=== PATIENT | female | born 1935 | race Caucasian/White ===

== ENCOUNTER 2017-08-11 10:16 | Inpatient (IN) | payer MEDICARE, BC ==
[2017-08-11] VITALS (7 sets, daily range): BP systolic 121–179; BP diastolic 58–136; PULSE 74–87; RESP 18–20; TEMP 97.2–98.4; O2SAT 93–98
[~2017-08-11] VITALS: Ht 162.6 cm; Wt 69.9 kg
[~2017-08-11 10:16] MED LIST: AMPH1TAB66 PO; HYDR-3583 PO; IBAN150T3 PO; ZOLP10TA3 PO
[2017-08-11] MEDS ORDERED: cloNIDine HCL 0.1 MG TAB PO PRN (10:45)
[2017-08-11] MEDS ORDERED: ACETAMINOPHEN 325 MG TAB PO PRN ×2 (10:45→14:15)
[2017-08-11] MEDS ORDERED: ONDANSETRON HCL 4 MG/2 ML VIAL IV PUSH PRN (10:45)
[2017-08-11] MEDS ORDERED: SODIUM CHLORIDE 0.9% FLUSH 10 ML FLUSH IV FLUSH PRN ×2 (10:45→14:15)
[2017-08-11] MEDS ORDERED: ACETAMINOPHEN/HYDROcodone 325 MG/10 MG TAB PO PRN (10:45)
[2017-08-11 11:00] LABS: AUTOMATED NEUTROPHIL # 5.2 TH/MM3 (1.8-7.7); BASOPHIL # 0.1 TH/MM3 (0-0.2); BASOPHIL % 0.8 % (0.0-2.0); EOSINOPHIL # 0.1 TH/MM3 (0-0.4); EOSINOPHIL % 1.5 % (0.0-4.0); HEMATOCRIT 47.7 % (35.0-46.0); HEMO FLAGS DIFF FINAL; LYMPH % 31.3 % (9.0-44.0); LYMPHOCYTE # 2.8 TH/MM3 (1.0-4.8); MEAN CELL VOLUME 85.4 FL (80.0-100.0); MEAN CORPUSCULAR HEMOGLOBIN 28.1 PG (27.0-34.0); MEAN CORPUSCULAR HGB CONC 32.9 % (32.0-36.0); MONO % 7.2 % (0.0-8.0); NEUT % 59.2 % (16.0-70.0); PLATELET COUNT 256 TH/MM3 (150-450); RED BLOOD COUNT 5.59 MIL/MM3 (4.00-5.30); RED CELL DISTRIBUTION WIDTH 13.9 % (11.6-17.2); WHITE BLOOD COUNT 8.8 TH/MM3 (4.0-11.0)
[2017-08-11] MEDS ORDERED: SODIUM CHLOR 0.45% 1000 ML IV SCH (11:00)
[2017-08-11 11:10] LABS: APTT (PATIENT) 26.1 SEC (24.3-30.1); INTERNATIONAL NORMALIZED RATIO 0.9 RATIO; PROTHROMBIN TIME - PATIENT 10.4 SEC (9.8-11.6)
[2017-08-11] MEDS ORDERED: DOCU50CA5 PO (11:15)
[2017-08-11] MEDS ORDERED: MIDAZOLAM HCL 2 MG/2 ML VIAL ONE (12:21)
[2017-08-11] MEDS ORDERED: ceFAZolin 2 GM PREMIX 50 ML ONE (12:22)
--- NOTE | 2017-08-11 13:46 | PD.RAD ---
Post Procedure Progress Note Pre Procedure Diagnosis: (1) Normal pressure hydrocephalus Post Procedure Diagnosis: (1) Normal pressure hydrocephalus Procedure Date: Aug 11, 2017 Supervising Radiologist: Odilon Maravilla Proceduralist/Assist: Dale Multani, RT(R), Franchesca Willoughby RT(R) Anesthesia: Conscious Sedation Plan of Activity Patient to Unit: Nursing Unit Patient Condition: Good See PACS Report for procedural detail/treatment Spinal Procedure Lumbar Drain L2-L3 (tip at s1) Fluid Removal (CCs): 1 Fluid Description: Odilon Roberts MD Aug 11, 2017 13:46
[2017-08-11] MEDS ORDERED: CYCLOBENZAPRINE HCL 10 MG TAB PO PRN (14:15)
[2017-08-11] MEDS ORDERED: MENTHOL LOZENGE BUCCAL PRN (14:15)
[2017-08-11] MEDS ORDERED: MAGNESIUM HYDROXIDE SUSP 30 ML CUP PO PRN (14:15)
[2017-08-11] MEDS ORDERED: PROMETHAZINE INJ 25 MG/ML VIAL IM PRN (14:15)
[2017-08-11] MEDS ORDERED: ALUMINUM/MAGNESIUM/SIMETH 30 ML CUP PO PRN (14:15)
[2017-08-11] MEDS ORDERED: RESP: ALBUTEROL 2.5 MG/3 ML NEB (PRN) NEB (14:15)
[2017-08-11] MEDS: SODIUM CHLOR 0.9% 1000 ML INJ 1,000 ML IV SCH ×2 (14:50→21:30)
--- NOTE | 2017-08-11 15:23 | RADRPT ---
EXAM DATE/TIME: 08/11/2017 12:06 [facility] COMPARISON: No previous studies available for comparison. INDICATIONS : Patient presents with dizziness and difficulty walking and short term memory loss, in need of a lumba r drain to check for normal pressure hydrocephalus. MEDICAL HISTORY : Enlarged ventricles osteoarthritis osteoporosis SURGIAL HISTORY : Tonsillectomy Cataracts Hip surgery Left Rotator Cuff ENCOUNTER: Initial ACUITY: 3 weeks PAIN SCORE: 5/10 LOCATION: Bilateral feet LUMBAR PUNCTURE TIME: 12:58 hours FLUORO TIME: 5.6 minutes IMAGE SERIES: 2 SEDATION TIME: 30 minutes LEVEL: Tip of lumbar drain was placed at L5 ? cm of water MEDICATION(S): 1.) 4 mg midazolam (Versed) IV 2.) 200 mcg fentanyl (Sublimaze) IV DEVICE(S): 1.) 5 [place] lumbar drain catheter PROCEDURE : 1. Fluoroscopically guided lumbar drain placement. 2. Conscious sedation with continuous EKG and oximetry monitoring. The risks, benefits and alternatives to the procedure were explained and verbal and written consent w as obtained. The site was prepped in sterile fashion. Full sterile technique was used, including ca p, mask, sterile gloves and gown and a large sterile sheet. Hand hygiene and 2% chlorhexidine and/or betadine/alcohol prep was utilized per protocol for cutaneous antisepsis. The skin and subcutaneous tissues were infiltrated with local anesthetic solution. With fluoroscopic guidance the lumbar thecal sac was punctured with a 14 gauge Touhy needle and a lum bar drain was placed with its tip at the level as described above and the catheter was sutured in joanna ce. CSF was identified returning from the catheter at the termination of the procedure. Conscious sedation was performed with the prescribed dosages and duration as above in the presence of an independent trained radiology nurse to assist in the monitoring of the patient. EKG and oximetry remained stable throughout the procedure. The patient tolerated the procedure well and there were n o complications. The patient was sent to post anesthesia recovery in stable condition. CONCLUSION: Uncomplicated lumbar drain placement as above. Odilon Maravilla MD on August 11, 2017 at 15:06 Board Certified Radiologist. This report was verified electronically.
[2017-08-11] MEDS: ACETAMINOPHEN/HYDROcodone 325 MG/10 MG TAB PO PRN ×2 (16:44→20:37)
[2017-08-11] MEDS: DOCUSATE SODIUM 100 MG CAP PO SCH (20:36)
[2017-08-11] MEDS: SODIUM CHLORIDE 0.9% FLUSH 10 ML FLUSH IV FLUSH SCH (20:37)
[2017-08-11] MEDS ORDERED: ZOLPIDEM TARTRATE 5 MG TAB PO PRN (21:00)
[2017-08-11] MEDS ORDERED: SODIUM CHLORIDE 0.9% FLUSH 10 ML FLUSH IV FLUSH SCH (21:00)
[2017-08-12] VITALS (7 sets, daily range): BP systolic 136–170; BP diastolic 65–83; PULSE 72–100; RESP 18–20; TEMP 98.2–98.8; O2SAT 93–98
[2017-08-12] MEDS: ZOLPIDEM TARTRATE 10 MG TAB PO PRN (00:17)
[2017-08-12 08:32] LABS: BICARBONATE 25.8 MEQ/L (21.0-32.0)
[2017-08-12] MEDS: PANTOPRAZOLE SOD 40 MG DELAYED RELEASE TAB PO SCH (08:43)
[2017-08-12] MEDS: DOCUSATE SODIUM 100 MG CAP PO SCH ×3 (08:43→20:27)
[2017-08-12] MEDS: ACETAMINOPHEN/HYDROcodone 325 MG/10 MG TAB PO PRN ×3 (08:44→20:33)
[2017-08-12] MEDS: SODIUM CHLORIDE 0.9% FLUSH 10 ML FLUSH IV FLUSH SCH ×2 (09:00→20:33)
[2017-08-12] MEDS: DEXTROAMPHETAMINE/AMPHETAMINE 20 MG TAB PO SCH (12:04)
--- NOTE | 2017-08-12 13:34 | HHI.NSPN ---
(Cisco Perry) History Chief Complaint: unsteady gait, urinary incontinence, short-term memory deficits. (Cisco Perry) Interval History 08/12/17: Patient underwent lumbar spinal drain placement for evaluation of symptoms of normal pressure hydrocephalus including short-term memory deficits, unsteady gait, and urinary incontinence. Patient had lumbar spinal drain placed on 08/11/17 and at this point has not had any improvement in her gait per physical therapy and her friends observation. Patient complains of headache , no nausea or vomiting. No numbness or tingling in the lower extremities. She moves lower extremities with good strength. (Cisco Perry) Review of Systems General: Negative for: fever, chills, insomnia Respiratory: Negative for: shortness of breath, cough, sputum Cardiovascular: Negative for: chest pain Gastrointestinal: Negative for: nausea, vomitting, diarrhea, constipation ( Cisco Perry) Exam Results Vital Signs Date Time Temp Pulse Resp B/P (MAP) Pulse Ox O2 Delivery O2 Flow Rate FiO2 08/12/17 12:00 98.2 80 18 155/78 (103) 96 Intake and Output 08/12/17 08/12/17 08/12/17 07:59 15:59 23:59 Output Total 80 ml Balance -80 ml (Cisco Perry) Physical Examination GENERAL: Patient resting comfortably in her bed. HEAD: Normocephalic, atraumatic. EYES: Pupils equal. Sclera non icteric. RESPIRATORY: CTA Bilaterally HEART: NSR Normal S1 and S2 ABDOMEN: Soft Positive BS SKIN: No cyanosis or erythema MUSCLE: Patient moves all 4 extremities, 5/5 strength in the lower extremities. She has an unsteady gait which the physical therapist states is unchanged after her a lumbar spinal drain was placed. NEUROLOGIC: Patient is awake and alert. Speech is clear and appropriate. Follows commands well. Sensation intact in extremities. Cranial Nerves II-XII grossly intact. (Cisco Perry) Lab, Micro, Other Results Last Impressions Lumbar Puncture Fluoroscopy 08/11/17 1032 Signed Impressions: Service Date/Time: Friday, August 11, 2017 12:06 - CONCLUSION: Uncomplicated lumbar drain placement as above. Odilon Maravilla MD Laboratory Tests Test 08/12/17 05:45 Blood Urea Nitrogen 15 MG/DL Creatinine 0.53 MG/DL Random Glucose 95 MG/DL Calcium Level 8.1 MG/DL Sodium Level 140 MEQ/L Potassium Level 4.0 MEQ/L Chloride Level 109 MEQ/L Carbon Dioxide Level 25.8 MEQ/L Anion Gap 5 MEQ/L Estimat Glomerular Filtration Rate 111 ML/MIN (Cisco Perry) Medical Decision Making Impression and Plan A: 82-year-old female with a history of unsteady gait, urinary incontinence, and short-term memory deficits who underwent a temporary lumbar spinal drain on 08/11/17 for further evaluation of possible normal pressure hydrocephalus. P: Continue with lumbar spinal drain. We will likely remove the lumbar spinal drain tomorrow the patient will need to be on bedrest for 6 hours after drain removed. Anticipate discharge on 08/14/17 a.m. Discuss plan with RN, patient, and patient's friend who helps takes care of her. (Cisco Perry) Attending Statement The exam, history, and the medical decision-making described in the above note were completed with the assistance of the mid-level provider. I reviewed and agree with the findings presented. I attest that I had a [id number] encounter with the patient on the same day, and personally performed and documented my assessment and findings in the medical record. (Alejandro Vogel MD) Cisco Perry Aug 12, 2017 13:34 Alejandro Vogel MD Aug 12, 2017 16:00
[2017-08-12] MEDS: SODIUM CHLOR 0.9% 1000 ML INJ 1,000 ML IV SCH (17:30)
[2017-08-13] MEDS: ZOLPIDEM TARTRATE 10 MG TAB PO PRN ×2 (00:02→21:14)
[2017-08-13 00:30] VITALS: BP 139/66; PULSE 80; RESP 18; TEMP 98.3; O2SAT 95
[2017-08-13] MEDS: SODIUM CHLOR 0.9% 1000 ML INJ 1,000 ML IV SCH ×3 (00:57→23:30)
[2017-08-13] MEDS: ACETAMINOPHEN/HYDROcodone 325 MG/10 MG TAB PO PRN ×4 (00:57→21:15)
[2017-08-13 05:01] VITALS: BP 129/59; PULSE 88; RESP 18; TEMP 98.1; O2SAT 95
[2017-08-13 08:00] VITALS: BP 123/58; PULSE 69; RESP 20; TEMP 97.7; O2SAT 92
[2017-08-13] MEDS: DEXTROAMPHETAMINE/AMPHETAMINE 20 MG TAB PO SCH (09:01)
[2017-08-13] MEDS: PANTOPRAZOLE SOD 40 MG DELAYED RELEASE TAB PO SCH (09:01)
[2017-08-13] MEDS: SODIUM CHLORIDE 0.9% FLUSH 10 ML FLUSH IV FLUSH SCH ×2 (09:02→21:00)
[2017-08-13] MEDS: DOCUSATE SODIUM 100 MG CAP PO SCH ×2 (09:02→21:14)
--- NOTE | 2017-08-13 11:57 | HHI.NSPN ---
(Johanny Bonilla) Note Status Status: Progress Note (Johanny Bonilla) Interval History Interval History 08/12/17: Patient underwent lumbar spinal drain placement for evaluation of symptoms of normal pressure hydrocephalus including short-term memory deficits, unsteady gait, and urinary incontinence. Patient had lumbar spinal drain placed on 08/11/17 and at this point has not had any improvement in her gait per physical therapy and her friends observation. Patient complains of headache , no nausea or vomiting. No numbness or tingling in the lower extremities. She moves lower extremities with good strength. 08/13: sitting up edge of bed eating breakfast. denies headaches. does not want to go home today as she does not have any family, requests dc tomorrow (Johanny Bonilla) Labs, Micro, & Vital Signs Results Date Time Temp Pulse Resp B/P (MAP) Pulse Ox O2 Delivery O2 Flow Rate FiO2 08/13/17 08:00 97.7 69 20 123/58 (79) 92 08/13/17 05:01 98.1 88 18 129/59 (82) 95 08/13/17 00:30 98.3 80 18 139/66 (90) 95 08/12/17 21:00 98.6 76 18 156/65 (95) 96 08/12/17 16:00 98.5 77 18 170/79 (109) 93 08/12/17 12:00 98.2 80 18 155/78 (103) 96 08/14/17 07:00 Output Total 80 ml Balance -80 ml Constitutional Vital Signs Date Time Temp Pulse Resp B/P (MAP) Pulse Ox O2 Delivery O2 Flow Rate FiO2 08/13/17 08:00 97.7 69 20 123/58 (79) 92 08/13/17 05:01 98.1 88 18 129/59 (82) 95 08/13/17 00:30 98.3 80 18 139/66 (90) 95 08/12/17 21:00 98.6 76 18 156/65 (95) 96 08/12/17 16:00 98.5 77 18 170/79 (109) 93 08/12/17 12:00 98.2 80 18 155/78 (103) 96 08/14/17 07:00 Output Total 80 ml Balance -80 ml (Johanny Bonilla) Physical Exam sitting edge of bed eating her breakfast without difficulties CN: pupils equal, facial motor symmetric lumbar drain in place, site clean Motor: moves all four extremities well Neck: soft, supple (Johanny Bonilla) Ms Rosario is alert, awake and oriented. Gait has improved Cranial nerve examination: pupils to be equal, round and reactive to light. Extra-ocular movements are intact. Facial motor and sensory function are normal and symmetrical. Gross hearing appears intact. Sternocleidomastoid and trapezius muscles are symmetrical. Other cranial nerves are intact. Neck is soft and supple with a good range of motion without pain. Muscle strength is normal in all muscle groups of both upper and lower extremities. Sensory examination is intact to light touch and pin prick in both the upper and lower extremities. Deep tendon reflexes are symmetrical in both upper and lower extremities. There is a bilateral plantar flexion response. Cerebellar examination is unremarkable, without deficits. (Blake Reyes MD) Medications Current Medications Current Medications Medications (Trade) Dose Ordered Sig/Chai Route PRN Reason Start Time Stop Time Status Last Admin Dose Admin Sodium Chloride 1,000 ml @ 100 mls/hr Q10H IV 08/11/17 11:30 08/11/17 14:50 Pantoprazole Sodium (Protonix) 40 mg DAILY PO 08/12/17 09:00 08/12/17 08:43 Ondansetron HCl (Zofran Inj) 4 mg Q6H PRN IV PUSH NAUSEA OR VOMITING 08/11/17 10:45 Acetaminophen/ Hydrocodone Bitart ([facility] 10-325 Mg) 1 tab Q4H PRN PO PAIN SCALE 1 TO 5 08/11/17 10:45 08/12/17 01:07 Acetaminophen/ Hydrocodone Bitart ([facility] 10-325 Mg) 2 tab Q4H PRN PO PAIN SCALE 6 TO 10 08/11/17 10:45 08/13/17 06:32 Clonidine (Catapres) 0.1 mg Q6H PRN PO SYS BP GREATER THAN 170 MMHG 08/11/17 10:45 Acetaminophen (Tylenol) 650 mg Q4H PRN PO TEMPERATURE > 101.5 F 08/11/17 10:45 Amphetamine/ Dextroamphetamine (Adderall) 20 mg DAILY PO 08/12/17 09:00 08/13/17 09:01 Zolpidem Tartrate (Ambien) 10 mg HS PRN PO INSOMNIA 08/11/17 14:15 08/13/17 00:02 Sodium Chloride (NS Flush) 2 ml UNSCH PRN IV FLUSH FLUSH AFTER USING IV ACCESS 08/11/17 14:15 Sodium Chloride (NS Flush) 2 ml BID IV FLUSH 08/11/17 21:00 Docusate Sodium (Colace) 100 mg BID PO 08/11/17 21:00 08/13/17 09:02 Magnesium Hydroxide (Milk Of Magnesia Liq) 30 ml DAILY PRN PO CONSTIPATION 08/11/17 14:15 Al Hydrox/Mg Hydrox/Simethicone (Mag-Al Plus Susp Liq) 30 ml Q6H PRN PO DYSPEPSIA 08/11/17 14:15 Promethazine HCl (Phenergan Inj) 25 mg Q4H PRN IM NAUSEA OR VOMITING 08/11/17 14:15 Cyclobenzaprine HCl (Flexeril) 10 mg Q8H PRN PO MUSCLE SPASM 08/11/17 14:15 Menthol (Firestone Jessica) 1 lozenge UNSCH PRN BUCCAL SORE THROAT 08/11/17 14:15 Albuterol Sulfate (Albuterol Neb) 2.5 mg Q4HR NEB PRN NEB WHEEZING 08/11/17 14:15 (Johanny Bonilla) Medical Decision Making MDM Remarks 82 y/o female with NPH s/p placement of lumbar drain (Johanny Bonilla) Plan Plan Remarks lumbar drain orders to be dc'ed today, keep flat per protocol patient refusing discharge home today as she says she has no family, requests discharge home tomorrow - Allen cont nonchemical dvt prophylaxis in view of lumbar drain cont PT dw nursing (Johanny Bonilla) Attending Statement Continue neuro checks. Improved ! Will DC lumbar drain today Pulmonary. Continue aggressive pulmonary toilette, nasotracheal suction, and breathing treatments with nebulizers. Renal. monitor closely urine output, BUN and creatinine Endocrine. Monitor serial Acu checks and SSI as needed in detail ID monitor for signs of infection Protonix for stress ulcer prophylaxis Emiliano hose and SCD's for DVT prophylaxis. The exam, history, and the medical decision-making described in the above note were completed with the assistance of the mid-level provider. I reviewed and agree with the findings presented. I attest that I had a [id number] encounter with the patient on the same day, and personally performed and documented my assessment and findings in the medical record. (Blake Reyes MD) Johanny Bonilla Aug 13, 2017 11:57 Blake Reyes MD Aug 18, 2017 09:53
[2017-08-13 12:00] VITALS: BP 148/67; PULSE 122; RESP 20; TEMP 98.2; O2SAT 95
[2017-08-13 16:00] VITALS: BP 167/81; PULSE 77; RESP 20; TEMP 98.7; O2SAT 95
[2017-08-13 21:13] VITALS: BP 143/70; PULSE 83; RESP 18; TEMP 98.7; O2SAT 96
[2017-08-14 00:39] VITALS: BP 149/89; PULSE 73; RESP 18; TEMP 98.5; O2SAT 95
[2017-08-14 08:00] VITALS: BP 147/74; PULSE 97; RESP 16; TEMP 98.5; O2SAT 95
--- NOTE | 2017-08-14 09:00 | HHI.FF ---
Face to Face Verification Diagnosis: (1) Normal pressure hydrocephalus Physical Therapy Order: Evaluate and Treat, Improve ambulation, Strength and gait training Home Health Nursing Order: Wound care and dressing changes Nursing assessment with vital signs I have seen patient Jessie Rosario on 08/14/17. My clinical findings support the need for the requested home health care services because: Deconditioned w/ increased weakness High risk of falls I certify that my clinical findings support that this patient is homebound because: Unsteady gait/balance Unable to use public transportation Cisco Perry Aug 14, 2017 9:00 am
--- NOTE | 2017-08-14 09:09 | HHI.DS ---
Discharge Summary Admission Date Aug 11, 2017 at 2:43 pm Discharge Date: Aug 14, 2017 Admitting Diagnosis (1) Normal pressure hydrocephalus Diagnosis: Principal ICD Code: G91.2 - (Idiopathic) normal pressure hydrocephalus Procedures Lumbar spinal drain placement by radiology special procedures Dr. Maravilla on . Brief History This is an 82-year-old female who presented to our office for evaluation of enlarged ventricles. Patient states in the beginning of June she got dizzy and fell backwards and hit her head. She states when she got up she had an episode of vomiting and went to back to bed. She is unsure whether she lost consciousness. She had difficulty with walking for the last 6-7 years which she attributes to her feet being painful. She has short shuffling wide-based gait. She also complains of dizzy spells where the room is spinning. I dizzy spells are exacerbated by movement and she thinks that they were exacerbated after head injury. She also complains of urge incontinence and has to wear pads. She denies any rakesh incontinence. She has short-term memory loss. She has sensitivity on the bottom of her feet which she attributes to her difficulty with walking and she states that she has a history of peripheral neuropathy. She states the sensation on the bottom of her feet feels like pins and needles. She was seen by her primary care physician who ordered an MRI of the brain. She was referred to neurology were evaluated her and felt that she may have normal pressure hydrocephalus and she was referred to neurosurgery for further evaluation. Patient is accompanied by her friend of 42 years to GIVE a history. She has living family members in particular children but they are estranged. CBC/BMP: 08/11/17 1045 08/12/17 0545 Significant Findings Laboratory Tests Test 08/11/17 10:45 08/12/17 05:45 Red Blood Count 5.59 MIL/MM3 (4.00-5.30) Hemoglobin 15.7 GM/DL (11.6-15.3) Hematocrit 47.7 % (35.0-46.0) Calcium Level 8.1 MG/DL (8.5-10.1) Chloride Level 109 MEQ/L (98-107) Hospital Course Patient underwent a lumbar spinal drain placement by Dr. Maravilla from radiology special procedures on 08/11/17. There was no complications with the drain placement. After the procedure patient was admitted to the medical/ surgical floor. Physical therapy was consulted. Patient was given orders to be on bed rest with bathroom privileges and physical therapy and when she was up out of bed instructions were to clamp the drain. Nurses were given instructions on how much spinal fluid to drain before clamping. The patient's activity was evaluated every day with physical therapy. In discussions with physical therapy they do not see a significant improvement in her gait. The lumbar spinal drain was removed and a Steri-Strip was placed at the exit site. Patient was instructed not to get up for 6 hours after the lumbar spinal drain was removed. She was subsequently discharged home with home health and home PT in stable condition. Pt Condition on Discharge: Stable Discharge Disposition: Disch w/ Home Health Serv Discharge Instructions DIET: Follow Instructions for: As Tolerated, No Restrictions ACTIVITIES You can perform: Shower Only-No Bath Activities to Avoid: Lifting/Bending, Strenuous Activity, Bathing Continued Medications: Amphetamine-Dextroamphetamine (Amphetamine-Dextroamphetamine) 20 Mg Tab 20 MG PO DAILY for Hyperactivity Control, #30 TAB 0 Refills Avoid late evening doses. Space doses at least 4 to 6 hours if more than once/day dosing. Docusate Sodium (Stool Softener) 50 Mg Capsule 1 CAP PO DAILY Hydrocodone-Acetaminophen (Hydrocodone-Acetaminophen) 10-325 mg Tab 1 TAB PO Q6H PRN for PAIN, TAB 0 Refills Zolpidem (Zolpidem) 10 Mg Tab 10 MG PO HS PRN for INSOMNIA, TAB 0 Refills Cisco Perry Aug 14, 2017 9:09 am
--- NOTE | 2017-08-14 09:30 | HHI.NSPN ---
(Cisco Perry) History Chief Complaint: unsteady gait, urinary incontinence, short-term memory deficits. (Cisco Perry) Interval History 08/12/17: Patient underwent lumbar spinal drain placement for evaluation of symptoms of normal pressure hydrocephalus including short-term memory deficits, unsteady gait, and urinary incontinence. Patient had lumbar spinal drain placed on 08/11/17 and at this point has not had any improvement in her gait per physical therapy and her friends observation. Patient complains of headache , no nausea or vomiting. No numbness or tingling in the lower extremities. She moves lower extremities with good strength. 08/14: Pt awake and alert. Complains of chronic pain in her feet and pain in her low back. Pt states she needs a rolling walker with brakes and a seat for home. (Cisco Perry) Review of Systems General: Negative for: fever, chills, insomnia Respiratory: Negative for: shortness of breath, cough, sputum Cardiovascular: Negative for: chest pain Gastrointestinal: Negative for: nausea, vomitting, diarrhea, constipation ( Cisco Perry) Exam Results Vital Signs Date Time Temp Pulse Resp B/P (MAP) Pulse Ox O2 Delivery O2 Flow Rate FiO2 08/14/17 00:39 98.5 73 18 149/89 (109) 95 (Cisco Perry) Physical Examination Resp: CTA bilaterally Heart: NSR no murmurs Abd: Soft positive bs Skin: No erythema at lumbar drain exit site. Muscle: Moves all 4 extremities well. Pt with chronic unsteadiness related to pain in her feet. Neuro: Pt awake and alert. Follows commands well. Speech clear. Hypersensitivity in her feet to light touch. (Cisco Perry) Lab, Micro, Other Results Last Impressions Lumbar Puncture Fluoroscopy 08/11/17 1032 Signed Impressions: Service Date/Time: Friday, August 11, 2017 12:06 - CONCLUSION: Uncomplicated lumbar drain placement as above. Odilon Maravilla MD (Cisco Perry) Medical Decision Making Impression and Plan A: 82-year-old female with a history of unsteady gait, urinary incontinence, and short-term memory deficits who underwent a temporary lumbar spinal drain on 08/11/17 for further evaluation of possible normal pressure hydrocephalus. P: Discharge pt home Follow up with Dr. Vogel in 4-6 weeks. Follow up with Neurology. (Cisco Perry) Attending Statement The exam, history, and the medical decision-making described in the above note were completed with the assistance of the mid-level provider. I reviewed and agree with the findings presented. I attest that I had a [id number] encounter with the patient on the same day, and personally performed and documented my assessment and findings in the medical record. (Alejandro Vogel MD) Cisco Perry Aug 14, 2017 09:30 Alejandro Vogel MD Aug 14, 2017 16:15
[2017-08-14] MEDS ORDERED: WALKER/ADULT/FO1 MIS (09:32)
[2017-08-14] MEDS: PANTOPRAZOLE SOD 40 MG DELAYED RELEASE TAB PO SCH (10:13)
[2017-08-14] MEDS: DEXTROAMPHETAMINE/AMPHETAMINE 20 MG TAB PO SCH (10:14)
[2017-08-14] MEDS: DOCUSATE SODIUM 100 MG CAP PO SCH (10:14)
[2017-08-14] MEDS: ACETAMINOPHEN/HYDROcodone 325 MG/10 MG TAB PO PRN (12:53)
== END 2017-08-14 14:28 | disposition home or self-care (01) | DRG 57 ==
LOC: HROP 10:16 → HRIP 10:21 → N05B 14:43 → HROP 14:43
PROVIDERS: ADMIT Neurological Surgery; ATTEND Neurological Surgery
PROC: 009U30Z Drainage of Spinal Canal with Drainage Device, Percutaneous Approach (ICD-10-PCS; principal; 2017-08-11)
DX: G91.2 (Idiopathic) normal pressure hydrocephalus (principal); G89.29 Other chronic pain; M54.5 Low back pain; M79.673 Pain in unspecified foot; N39.41 Urge incontinence
CPT/HCPCS: 63741; 76937; 77003; 80048; 85025; 85610; 85730; 94150; 99152; 99153; C1755; J0690; J2250; J3010; J7030